=== PATIENT | female | born 1980 | race Caucasian/White ===

== ENCOUNTER 2017-09-20 03:05 | Emergency (ER) | payer OTHER ==
[~2017-09-20] VITALS: Ht 165.1 cm; Wt 75.5 kg
[2017-09-20 03:09] VITALS: BP 137/72; PULSE 68; RESP 12; TEMP 97.9; O2SAT 100
[2017-09-20] MEDS ORDERED: IBUP-232 PO (03:24)
[2017-09-20] MEDS ORDERED: PRED10 PO (03:24)
[2017-09-20] MEDS ORDERED: CYCL5TAB PO (03:24)
[2017-09-20] MEDS ORDERED: PERC5TAB12 PO (05:09)
[2017-09-20] MEDS ORDERED: CYCL10TA PO (05:09)
--- NOTE | 2017-09-20 05:10 | PD ---
HPI Chief Complaint: Back/ Neck Pain or Injury Time Seen by Provider: 04:47 Travel History International Travel<30 days: No Contact w/Intl Traveler<30days: No Traveled to known affect area: No History of Present Illness HPI The patient is a 37-year-old female that complains of left back pain radiating down her left leg since yesterday morning. She has had problems with this before with her scoliosis but never anything this bad. She came in [facility] because she cannot sleep. She was already seen at an urgent care center and was put on a tapered course of prednisone, ibuprofen and Flexeril. She has not rested, she is on vacation and has 2 children at home with her and has not tried adequate bed rest. PFSH Past Medical History Musculoskeletal: Yes (SCOLIOSIS, SCIATICA) Tetanus Vaccination: < 5 Years Influenza Vaccination: No ?: Not LMP: 08/26/17 : 2 Para: 2 Past Surgical History Surgical History: No Previous Surgery Social History Alcohol Use: Yes ("ONCE OR TWICE A WEEK") Tobacco Use: No Substance Use: No Allergies-Medications (Allergen,Severity, Reaction): Coded Allergies: Penicillins (Verified Allergy, Severe, Swelling, 09/20/17) THROAT SWELLING Reported Meds & Prescriptions Reported Meds & Active Scripts Active Reported Flexeril (Cyclobenzaprine HCl) 5 Mg Tab 5 Mg PO TID Ibuprofen 600 Mg Tab 600 Mg PO Q8HR PRN Prednisone 10 Mg Tab 10 Mg PO DAILY Review of Systems Except as stated in HPI: all other systems reviewed are Neg Physical Exam Narrative GENERAL: The patient is alert, oriented 3 in moderate apparent distress with her back discomfort. Her vital signs are normal. SKIN: Focused skin assessment warm/dry. HEAD: Atraumatic. Normocephalic. EYES: Pupils equal and round. No scleral icterus. No injection or drainage. ENT: No nasal bleeding or discharge. Mucous membranes pink and moist. NECK: Trachea midline. No JVD. CARDIOVASCULAR: Regular rate and rhythm. No murmur appreciated. RESPIRATORY: No accessory muscle use. Clear to auscultation. Breath sounds equal bilaterally. GASTROINTESTINAL: Abdomen soft, non-tender, nondistended. Hepatic and splenic margins not palpable. MUSCULOSKELETAL: No obvious deformities. No clubbing. No cyanosis. No edema. There is tenderness in the sciatic area on the left. This reproduces her pain. Straight leg raising is normal on the right leg but causes pain at 10 on the left leg. The reflexes show 2+ bilaterally over the patella, 2+ bilaterally over the Achilles and pinprick is normal bilaterally. NEUROLOGICAL: Awake and alert. No obvious cranial nerve deficits. Motor grossly within normal limits. Normal speech. PSYCHIATRIC: Appropriate mood and affect; insight and judgment normal. Data Data Last Documented VS Vital Signs Date Time Temp Pulse Resp B/P (MAP) Pulse Ox O2 Delivery O2 Flow Rate FiO2 09/20/17 03:09 97.9 68 12 137/72 (93) 100 MDM Medical Decision Making Medical Screen Exam Complete: Yes Emergency Medical Condition: Yes Medical Record Reviewed: Yes Differential Diagnosis Herniated nucleus pulposus, sciatic nerve pain, acute lumbar strain Narrative Course The patient appears to have sciatic nerve pain on the left. She will be given Percocet 5/325 #30 tablets and she is to rest. She also is to take Flexeril 10 mg 3 times daily, 5 mg Flexeril was prescribed initially at the urgent care center. Diagnosis Primary Impression: Left sciatic nerve pain Additional Instructions: As we discussed, take the Flexeril 10 mg 3 times daily, rest and take the pain pill Percocet every 4 hours as needed for pain. Follow-up with your doctor and keep communication with your doctor in [place]. Med/Other Pt SpecificInfo: Prescription(s) given Scripts Oxycodone-Acetaminophen (Percocet) 5-325 mg Tab 1-2 TAB PO Q6H Y for PAIN, #30 TAB 0 Refills Prov: Freddy Schulte MD 09/20/17 Cyclobenzaprine (Flexeril) 10 Mg Tab 10 MG PO TID for Muscle Spasm, #30 TAB 0 Refills Prov: Freddy Schulte MD 09/20/17 Disposition: 01 DISCHARGE HOME Condition: Stable Freddy Schulte MD Sep 20, 2017 05:10
== END 2017-09-20 05:20 | disposition home or self-care (01) ==
LOC: PHED 03:05
DX: M54.32 Sciatica, left side (principal); M41.9 Scoliosis, unspecified
CPT/HCPCS: 99284